=== PATIENT | female | born 1945 | race Caucasian/White ===

== ENCOUNTER 2016-06-14 12:59 | Outpatient (CLI) | payer MEDICARE | END 2016-06-14 13:00 | disposition home or self-care (01) | DX: Z12.31 Encounter for screening mammogram for malignant neoplasm of breast (principal); Z80.3 Family history of malignant neoplasm of breast ==

== ENCOUNTER 2017-03-04 22:51 | Outpatient (CLI) | payer MEDICARE | END 2017-03-04 22:52 | disposition critical access hospital (66) | LOC: EMS 22:51 | PROVIDERS: ATTEND Surgery | DX: R07.9 Chest pain, unspecified (principal) | CPT/HCPCS: A0425; A0427 ==

== ENCOUNTER 2017-03-04 23:21 | Emergency (ER) | payer MEDICARE ==
--- NOTE | 2017-03-05 00:15 | ED Physician Documentation ---
PD HPI CHEST PAIN - Stated complaint Stated Complaint: CP - Chief complaint Chief Complaint: Cardiac - History obtained from History obtained from: Patient - History of Present Illness Timing - onset: Enter time (21:30), Today Timing - onset during: Rest Timing - details: Abrupt onset Pain level now: 3 Quality: Pain Location: Substernal Radiation: Jaw, Left upper extremity Improved by: Nothing Worsened by: No: Exertion, Inspiration, Eating, Movement, Palpation, Position Associated symptoms: No: Shortness of air, Diaphoresis, Nausea, Vomiting, Feeling faint / dizzy, General Weakness, Palpitations, Cough Similar symptoms before: Has not had sx before Recently seen: Not recently seen Review of Systems Constitutional: reports: Reviewed and negative Cardiac: reports: Chest pain / pressure. 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 HEENT: Tonsil/Adenoidectomy Derm: Other - Present Medications Home Medications: Ambulatory Orders Medication Instructions Recorded Confirmed Pramipexole Di-HCl [Mirapex] 0.25 mg PO QPM 11/16/13 03/04/17 Clonazepam 1 tab PO PRN PRN 03/04/17 03/04/17 Nabumetone 1 tab PO PRN PRN 03/04/17 03/04/17 - Allergies Allergies/Adverse Reactions: Allergies Allergy/AdvReac Type Severity Reaction Status Date / Time No Known Drug Allergies Allergy Verified 03/04/17 23:29 - Social History Does the pt smoke?: No Smoking Status: Never smoker Does the pt drink ETOH?: Yes ETOH Use: Wine Does the pt have substance abuse?: No Results - Vitals Vitals: Oxygen O2 Source Room air - EKG (time done) No standard instances Rate: Rate (enter#) (62) Rhythm: NSR [place]: Normal Intervals: Normal AR QRS: Normal Ischemia: Normal ST segments - Labs Labs: Laboratory Tests 03/05/17 03/05/17 03/05/17 00:35 00:35 00:35 WBC 5.6 RBC 4.18 L Hgb 12.6 Hct 37.7 MCV 90.1 MCH 30.2 MCHC 33.5 RDW 13.9 Plt Count 243 MPV 8.3 Neut # 3.3 Lymph # 1.9 [place] # 0.3 Eos # 0.1 Baso # 0.1 Absolute Nucleated RBC 0.00 Nucleated RBC % 0.0 Sodium 138 Potassium 3.9 Chloride 102 Carbon Dioxide 26 Anion Gap 10.0 BUN 30 H Creatinine 1.0 Estimated GFR (MDRD) 54 L Glucose 90 Calcium 9.6 Total Bilirubin 0.3 AST 21 ALT 21 Alkaline Phosphatase 61 Troponin I < 0.04 Total Protein 6.7 Albumin 4.2 Globulin 2.5 Albumin/Globulin Ratio 1.7 Lipase 36 - Rads (name of study) chest xray Radiology: Prelim report reviewed, See rad report PD MEDICAL DECISION MAKING - ED course Complexity details: reviewed results, re-evaluated patient, considered differential, d/w patient Departure - Departure Disposition: 01 Home, Self Care Clinical Impression: Chest pain Condition: Good Instructions: ED Chest Pain Atypical Unkn Cause Follow-Up: Jennifer Guillermo PA [Primary Care Provider] - Discharge Date/Time: 03/05/17 03:09
[2017-03-05] MEDS ORDERED: MAG HYDROX/AL HYDROX/SIMETH 30 ML UDC PO STA (00:31)
[2017-03-05] MEDS ORDERED: LIDOCAINE VISCOUS 2% 15 ML UDC MM STA (00:31)
[2017-03-05] MEDS ORDERED: PHENobarb/HYOSCY/ATROPINE/SCOP 5 ML SYRINGE PO STA (00:32)
[2017-03-05] MEDS ORDERED: PHENobarb/HYOSCY/ATROPINE/SCOP 5 ML SYRINGE PO ONE (00:41)
[2017-03-05] MEDS ORDERED: LIDOCAINE VISCOUS 2% 15 ML UDC MM ONE (00:42)
[2017-03-05] MEDS ORDERED: MAG HYDROX/AL HYDROX/SIMETH 30 ML UDC ONE (00:42)
[2017-03-05 00:44] LABS: BASOPHILS # (AUTO) 0.1 10^3/uL (0.0-0.1); EOSINOPHILS # (AUTO) 0.1 10^3/uL (0.0-0.7); EOSINOPHILS % (AUTO) 1.1 %; HCT - HEMATOCRIT 37.7 % (37.0-47.0); HGB - HEMOGLOBIN 12.6 g/dL (12.0-16.0); LYMPHOCYTES # (AUTO) 1.9 10^3/uL (1.5-3.5); LYMPHOCYTES % (AUTO) 33.5 %; MEAN CORPUSCULAR HEMOGLOBIN 30.2 pg (27.0-31.0); MEAN CORPUSCULAR HGB CONC 33.5 g/dL (32.0-36.0); MEAN CORPUSCULAR VOLUME 90.1 fL (81.0-99.0); MEAN PLATELET VOLUME 8.3 fL (7.9-10.8); MONOCYTES # (AUTO) 0.3 10^3/uL (0.0-1.0); MONOCYTES % (AUTO) 5.8 %; NEUTROPHILS # (AUTO) 3.3 10^3/uL (1.5-6.6); NEUTROPHILS % (AUTO) 58.6 %; RED BLOOD COUNT 4.18 10^6/uL (4.20-5.40); RED CELL DISTRIBUTION WIDTH 13.9 % (12.0-15.0); UNCORRECTED WHITE BLOOD COUNT 5.6 x10^3/uL; WHITE BLOOD COUNT 5.6 x10^3/uL (4.8-10.8)
[2017-03-05 00:55] LABS: ALBUMIN/GLOBULIN RATIO 1.7 (1.0-2.2); BILIRUBIN,TOTAL 0.3 mg/dL (0.2-1.0); CALCIUM 9.6 mg/dL (8.5-10.3); POTASSIUM 3.9 mmol/L (3.5-5.0); TOTAL PROTEIN 6.7 g/dL (6.7-8.2)
--- NOTE | 2017-03-05 01:03 | XRAY Preliminary Report ---
Exam: XR CHEST 2 VIEW PA/LAT IMPRESSION: Left basilar atelectatic changes, otherwise no acute cardio pulmonary process. [facility] SITE ID: [id number]
--- NOTE | 2017-03-05 01:06 | XRAY Report ---
EXAM: CHEST RADIOGRAPHY EXAM DATE: 03/05/2017 12:50 AM. CLINICAL HISTORY: Left sided chest pain COMPARISON: 01/11/2006. TECHNIQUE: 2 views. FINDINGS: Lungs/Pleura: Hypoventilatory opacities at the left lung base. No pulmonary edema or confluent lobar consolidation. No pleural effusion or pneumothorax. Mediastinum: Heart and mediastinal contours are unremarkable. Other: Moderate right convexity midthoracic scoliosis, increased since the previous exam. IMPRESSION: Left basilar atelectatic changes, otherwise no acute cardio pulmonary process. [facility] Referring Provider Line: [phone] SITE ID: [id number]
[2017-03-05] MEDS ORDERED: PANTOPRAZOLE 40 MG TABLET PO STA (02:02)
[2017-03-05] MEDS ORDERED: PANTOPRAZOLE 40 MG TABLET ONE (02:12)
[2017-03-05 03:09] VITALS: BP 158/91
== END 2017-03-05 03:09 | disposition home or self-care (01) ==
LOC: EDUNIT# → SUPCPDRO 23:21 → ED 23:21
DX: R07.9 Chest pain, unspecified (principal); E78.00 Pure hypercholesterolemia, unspecified
CPT/HCPCS: 36415; 71020; 80053; 83690; 84484; 85025; 93005; 99284; A9270

== ENCOUNTER 2018-04-14 15:20 | Outpatient (CLI) | payer MEDICARE ==
--- NOTE | 2018-04-16 09:38 | XRAY Report ---
Reason: PAIN IN LEFT FOOT Procedure Date: 04/14/2018 Accession Number: [id number] / [id number] Procedure: XR - Foot 3 View LT CPT Code: FULL RESULT: EXAM: LEFT FOOT RADIOGRAPHY EXAM DATE: 04/14/2018 03:35 PM. CLINICAL HISTORY: PAIN IN LEFT FOOT. Pain between the second and third digits on left foot for 2 years, feels like electric shock. COMPARISON: None. TECHNIQUE: 3 nonweightbearing views. FINDINGS: Bones: Normal. No fractures or bone lesions. Joints: No subluxation or dislocation. There is mild hallux valgus alignment at the first metatarsophalangeal joint. Soft Tissues: Normal. No soft tissue swelling. IMPRESSION: 1. Mild hallux valgus alignment at the first metatarsophalangeal joint. 2. No acute osseous abnormality. [facility]
== END 2018-04-14 15:21 | disposition home or self-care (01) ==
LOC: DI 15:20
PROVIDERS: ATTEND Physician Assistant
DX: M20.12 Hallux valgus (acquired), left foot (principal)

== ENCOUNTER 2020-06-24 13:20 | Outpatient (CLI) | payer MEDICARE ==
--- NOTE | 2020-06-24 16:33 | DEXA Report ---
PROCEDURE: Dexa Spine and/or Hip INDICATIONS: POSTMENOPAUSAL TECHNIQUE: Dual energy x-ray absorptiometry (DXA) was performed on a NanoCellect System. Regions measur ed are the AP Spine, femoral neck, and if needed forearm. COMPARISON: None. FINDINGS: Lumbar Spine: Unable to use for assessment. Left Femoral Neck: Bone Mineral Density 0.815 g/cm/cm, T score -1.5, osteopenia Left forearm: The forearm was utilized for measurements of bone mineral density given excessive densi ties seen on lumbar spine imaging. Bone Mineral Density 0.473 g/cm/cm, T score -3.2, osteoporosis (T score greater or equal to -1.0: NORMAL) (T score from -1.1 to -2.4: OSTEOPENIA) (T score less than or equal to -2.5 to: OSTEOPOROSIS) Impression: OSTEOPOROSIS. Patient is at high risk for fracture. Patients with diagnosis of osteoporosis or osteopenia should have regular bone mineral density assess ment. For those eligible for Medicare, routine testing is allowed once every 2 years. Testing frequ ency can be increased for patients who have rapidly progressing disease or for those who are receivin g medical therapy to restore bone mass. Reviewed by: Binh Cooper MD on 06/24/2020 4:32 PM PDT Approved by: Binh Cooper MD on 06/24/2020 4:32 PM PDT Station ID: [id number]
== END 2020-06-24 13:21 | disposition home or self-care (01) ==
LOC: DI 13:20
PROVIDERS: ATTEND Nurse Practitioner Family
DX: M81.0 Age-related osteoporosis without current pathological fracture (principal); Z78.0 Asymptomatic menopausal state

== ENCOUNTER 2020-06-24 13:22 | Outpatient (CLI) | payer MEDICARE ==
--- NOTE | 2020-06-25 15:09 | Mammography Report ---
BILATERAL DIGITAL SCREENING MAMMOGRAM 3D/2D: 06/24/2020 CLINICAL: Routine screening. Comparison is made to exams dated: 06/14/2016 mammogram, 05/26/2015 mammogram, and 04/18/2014 mammogram - [facility]. There are scattered fibroglandular elements in both breasts. No significant masses, calcifications, or other findings are seen in either breast. There has been no significant interval change. IMPRESSION: NEGATIVE There is no mammographic evidence of malignancy. A 1 year screening mammogram is recommended. This exam was interpreted at Station ID: [id number]. NOTE: For mammograms, a report in lay terms will be sent to the patient. Approximately 15% of breast malignancies will not be visualized mammographically. In the management of a palpable breast mass, a negative mammogram must not discourage biopsy of a clinically suspicious lesion. Electronically Signed By: Antwon Reyes M.D. ar/libbyrad:06/24/2020 16:40:26 ACR BI-RADS Category 1: Negative 3341F PARENCHYMAL PATTERN: (A) - The breast(s) demonstrate(s) scattered fibroglandular densities. BI-RADS CATEGORY: (1) - 1 RECOMMENDATION: (ANNUAL) - Recommend routine annual screening mammography. [id number] 1 year screening LATERALITY: (B)
== END 2020-06-24 13:23 | disposition home or self-care (01) ==
LOC: DI 13:22
PROVIDERS: ATTEND Nurse Practitioner Family
DX: Z12.31 Encounter for screening mammogram for malignant neoplasm of breast (principal)

== ENCOUNTER 2020-07-22 22:43 | Emergency (ER) | payer MEDICARE ==
--- NOTE | 2020-07-23 00:02 | ED Physician Documentation ---
PD HPI ABD PAIN - Stated complaint Stated Complaint: ABD PX - Chief complaint Chief Complaint: Abd Pain - History obtained from History obtained from: Patient - History of Present Illness Timing - onset: Today Timing - details: Gradual onset, Waxing and waning Pain level now: 8 Quality: Pain Location: RUQ, Epigastric, Other (across upper abdomen, worst in RUQ and epigastrium) Radiation: Lower back Improved by: Other (nothing) Worsened by: Eating, Palpation Associated symptoms: Nausea, Vomiting. No: Fever, Diarrhea, Constipation Recently seen: Other (had colonoscopy yesterday) - Additional information Additional information: patient had colonoscopy yesterday without acutely concerning findings (diverticulosis, polyps noted; they were unable to complete the colonoscopy due to tortuous colon). Patient says she was doing well until earlier this afternoon when she developed gradual onset upper abdominal pain shortly after she had solid food for first time since the procedure. The pain has steadily worsened and became associated with nausea and vomiting this evening. She contacted the GI group ([facility]), and the customer service correspondence clerk patch machine operator recommended she come to ED for evaluation Review of Systems Constitutional: denies: Fever, Chills, Sweats Eyes: reports: Reviewed and negative Ears: reports: Reviewed and negative Nose: reports: Reviewed and negative Throat: reports: Reviewed and negative Cardiac: reports: Reviewed and negative Respiratory: reports: Reviewed and negative GI: reports: Abdominal Pain, Nausea, Vomiting. 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, 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 HEENT: Tonsil/Adenoidectomy Derm: Other - Present Medications Home Medications: Ambulatory Orders Medication Instructions Recorded Confirmed Pramipexole Di-HCl [Mirapex] 0.25 mg PO QPM 11/16/13 03/04/17 Clonazepam 1 tab PO PRN PRN 03/04/17 03/04/17 Nabumetone 1 tab PO PRN PRN 03/04/17 03/04/17 - Allergies Allergies/Adverse Reactions: Allergies Allergy/AdvReac Type Severity Reaction Status Date / Time No Known Drug Allergies Allergy Verified 07/22/20 22:54 - Social History Does the pt smoke?: No Smoking Status: Never smoker Does the pt drink ETOH?: Yes Does the pt have substance abuse?: No PD ED PE NORMAL - Vitals Vital signs reviewed: Yes - General General: Alert and oriented X 3, Well developed/nourished, Other (obvious painful distress) - HEENT HEENT: Other (tacky/pasty mucous membranes) - Neck Neck: Supple, no meningeal sign - Cardiac Cardiac: RRR, No murmur - Respiratory Respiratory: No respiratory distress, Clear bilaterally - Abdomen Abdomen: Soft, Non distended, Other (TTP across upper abdomen, most pronounced RUQ) - Back Back: No CVA TTP - Derm Derm: Normal color, Warm and dry - Extremities Extremities: No edema - Neuro Neuro: Alert and oriented X 3 Results - Vitals Vitals: Vital Signs - 24 hr 07/22/20 07/22/20 07/23/20 22:50 22:52 01:16 Temperature 36.8 C 37.1 C Heart Rate 83 86 99 Respiratory 20 17 12 Rate Blood Pressure 146/78 H 141/86 H 144/83 H O2 Saturation 96 97 86 L 07/23/20 07/23/20 07/23/20 01:19 03:30 06:00 Temperature 36.4 C L Heart Rate 80 78 Respiratory 12 14 18 Rate Blood Pressure 106/58 L 113/60 O2 Saturation 92 93 92 Oxygen O2 Source Room air - Labs Labs: Laboratory Tests 07/22/20 07/22/20 07/23/20 23:50 23:50 04:10 WBC 10.0 RBC 4.62 Hgb 13.6 Hct 42.1 MCV 91.1 MCH 29.4 MCHC 32.3 RDW 14.1 Plt Count 196 MPV 11.0 H Neut # (Auto) 9.4 H Lymph # (Auto) 0.2 L [place] # (Auto) 0.2 Eos # (Auto) 0.1 Baso # (Auto) 0.0 Absolute Nucleated RBC 0.00 Nucleated RBC % 0.0 Sodium 139 Potassium 3.2 L Chloride 102 Carbon Dioxide 24 Anion Gap 13.0 BUN 19 Creatinine 1.1 H Estimated GFR (MDRD) 48 L Glucose 108 H Calcium 9.9 Total Bilirubin 4.7 H AST 89 H ALT 73 H Alkaline Phosphatase 108 Total Protein 7.5 Albumin 4.6 Globulin 2.9 Albumin/Globulin Ratio 1.6 Lipase 31 Nasal Adenovirus (PCR) NOT DETECTED Nasal B. parapertussis DNA (PCR) NOT DETECTED Nasal Coronavir 229E PCR NOT DETECTED Nasal Coronavir HKU1 PCR NOT DETECTED Nasal Coronavir NL63 PCR NOT DETECTED Nasal Coronavir OC43 PCR NOT DETECTED Nasal Enterovir/Rhinovir PCR NOT DETECTED Nasal Influenza B PCR NOT DETECTED Nasal Influenza A PCR NOT DETECTED Nasal Parainfluen 1 PCR NOT DETECTED Nasal Parainfluen 2 PCR NOT DETECTED Nasal Parainfluen 3 PCR NOT DETECTED Nasal Parainfluen 4 PCR NOT DETECTED Nasal RSV (PCR) NOT DETECTED Nasal B.pertussis DNA PCR NOT DETECTED Nasal C.pneumoniae (PCR) NOT DETECTED Raj Human Metapneumo PCR NOT DETECTED Nasal M.pneumoniae (PCR) NOT DETECTED Nasal SARS-CoV-2 (PCR) NOT DETECTED - Rads (name of study) CT A/P with IV contrast Radiology: Prelim report reviewed, See rad report PD MEDICAL DECISION MAKING - ED course Complexity details: reviewed results, re-evaluated patient, considered differential, d/w patient ED course: CT A/P shows multiple gallstones with distended gallbladder and intrahepatic ductal dilatation. She has mildly elevated AST and ALT but significantly elevated bilirubin. Given IV dilaudid with good symptom relief. I discussed the case with Dr. Monge (customer service correspondence clerk GI for [facility]); he recommends admission for MRCP and possible ERCP depending on results. He recommends admit to either hospitalist or surgical service. I discussed the case with Dr. Baltazar (customer service correspondence clerk surgery for [facility]); he recommends transfer to facility with ERCP capability. The [facility] transfer center was then contacted; they informed ED LEAD NUCLEAR MEDICINE TECHNOLOGIST that no beds are available at [facility]. I then discussed the case with transfer center for [facility]. Transfer center says there is no availability at [facility] or affiliated hospitals. I then discussed the case with surgery customer service correspondence clerk (Dr. Cowart) at [facility] in [place]. She agrees patient is appropriate for transfer to [place], recommends admit to hospitalist service. I then discussed the case with Dr. Hinojosa, hospitalist at [facility], accepts transfer. He recommends IV ceftriaxone and metronidazole and these are given in [facility] ED. Departure - Departure Disposition: 02 Transfer Acute Care Hosp Clinical Impression: Cholecystitis Condition: Stable Discharge Date/Time: 07/23/20 07:23
[2020-07-23] MEDS ORDERED: SODIUM CHLORIDE 0.9% 1,000 ML IV STA ×2 (00:03→00:17)
[2020-07-23] MEDS ORDERED: ONDANSETRON 4 MG/2 ML VIAL IVP STA (00:03)
[2020-07-23 00:11] LABS: BASOPHILS % (AUTO) 0.3 %; EOSINOPHILS # (AUTO) 0.1 10^3/uL (0.0-0.7); EOSINOPHILS % (AUTO) 1.4 %; HCT - HEMATOCRIT 42.1 % (37.0-47.0); HGB - HEMOGLOBIN 13.6 g/dL (12.0-16.0); LYMPHOCYTES # (AUTO) 0.2 10^3/uL (1.5-3.5); LYMPHOCYTES % (AUTO) 2.3 %; MEAN CORPUSCULAR HEMOGLOBIN 29.4 pg (27.0-31.0); MEAN CORPUSCULAR HGB CONC 32.3 g/dL (32.0-36.0); MEAN CORPUSCULAR VOLUME 91.1 fL (81.0-99.0); MONOCYTES # (AUTO) 0.2 10^3/uL (0.0-1.0); NEUTROPHILS # (AUTO) 9.4 10^3/uL (1.5-6.6); NEUTROPHILS % (AUTO) 93.8 %; PLT - PLATELET COUNT 196 10^3/uL (130-450); RED BLOOD COUNT 4.62 10^6/uL (4.20-5.40); RED CELL DISTRIBUTION WIDTH 14.1 % (12.0-15.0)
[2020-07-23] MEDS ORDERED: HYDROmorphone 1 MG/ML CARPUJECT IVP STA ×2 (00:13→07:02)
[2020-07-23] MEDS ORDERED: IOPAMIDOL-300 100 ML VIAL ONE (00:20)
[2020-07-23 00:44] LABS: ALBUMIN 4.6 g/dL (3.2-5.5); ALBUMIN/GLOBULIN RATIO 1.6 (1.0-2.2); BILIRUBIN,TOTAL 4.7 mg/dL (0.2-1.0); CALCIUM 9.9 mg/dL (8.5-10.3); CREATININE 1.1 mg/dL (0.4-1.0); POTASSIUM 3.2 mmol/L (3.5-5.0); TOTAL PROTEIN 7.5 g/dL (6.7-8.2)
[2020-07-23] MEDS ORDERED: IOPAMIDOL-300 100 ML VIAL IVP ONE (01:35)
[2020-07-23 05:35] LABS: B. PARAPERTUSSIS- RESP PCR PAN NOT DETECTED; B. PERTUSSIS- RESP PCR PANEL NOT DETECTED; C. PNEUMONIAE- RESP PCR PANEL NOT DETECTED; CORONAVIRUS 229E-RESP PCR NOT DETECTED; CORONAVIRUS HKU1-RESP PCR NOT DETECTED; CORONAVIRUS NL63-RESP PCR NOT DETECTED; CORONAVIRUS OC43-RESP PCR NOT DETECTED; HUMAN METAPNEUMOVIRUS NOT DETECTED; INFLUENZA A- RESP PCR PANEL NOT DETECTED; INFLUENZA B - RESP PCR PANEL NOT DETECTED; M. PNEUMONIAE- RESP PCR PANEL NOT DETECTED; PARAINFLUENZA VIRUS 1 NOT DETECTED; PARAINFLUENZA VIRUS 2 NOT DETECTED; PARAINFLUENZA VIRUS 3 NOT DETECTED; PARAINFLUENZA VIRUS 4 NOT DETECTED; RHINOVIRUS/ENTEROVIRUS NOT DETECTED; RSV- RESP PCR PANEL NOT DETECTED; SARS-CoV-2 -RESP PCR PANEL NOT DETECTED
[2020-07-23] MEDS ORDERED: cefTRIAXone 1 GM in SODIUM CHLORIDE 0.9% MINIBAG 100 ML IV STA (05:41)
[2020-07-23] MEDS ORDERED: metroNIDAZOLE 500 MG/100 ML 500 MG/100 ML BAG IV STA (05:41)
[2020-07-23] MEDS ORDERED: cefTRIAXone 1 GM VIAL ONE (05:56)
[2020-07-23 06:36] VITALS: BP 113/60
--- NOTE | 2020-07-23 08:27 | CT Report ---
PROCEDURE: Abdomen/Pelvis W INDICATIONS: abdominal pain CONTRAST: IV CONTRAST: Isovue 300 ml: 100 PO CONTRAST: *NO PO CONTRAST TECHNIQUE: After the administration of intravenous contrast, 5 mm thick sections acquired from the diaphragms to the symphysis. 5 mm thick coronal and sagittal reformats were acquired. For radiation dose reducti on, the following was used: automated exposure control, adjustment of mA and/or kV according to greta ent size. COMPARISON: None. FINDINGS: Image quality: Excellent. ABDOMEN: Lung bases: Lung bases are clear. Heart size is normal. Solid organs: Liver and spleen are normal in size and enhancement. The gallbladder is distended with a thickened wall and edema within the wall of the gallbladder. There are multiple stones in the gall bladder neck region. There is intrahepatic biliary ductal dilatation. The extrahepatic duct measures 1.1 cm at the level of the common hepatic duct. There is no distal common duct stone identified. Stoddard nikki, cannot exclude a distal common duct stone. Pancreas enhances normally. No adrenal nodules. Kid neys demonstrate normal size and enhancement, without hydronephrosis. Peritoneum and bowel: Remote gastric bypass. Mild to moderate hiatal hernia containing stomach. Akbar l loops demonstrate normal wall thickness and caliber. No free fluid or air. Nodes and vessels: No retroperitoneal or mesenteric adenopathy by size criteria. Aorta and inferior vena cava are normal in size. Miscellaneous: There are at least 3 small midline ventral hernias containing fat. PELVIS: Genitourinary: Bladder wall thickness is normal. Miscellaneous: No inguinal hernias or adenopathy. Uterus is surgically absent. Bones: No suspicious bony lesions. No vertebral body compression fractures. Levoscoliosis centered at L2. This is moderate. IMPRESSION: 1. Distended gallbladder with gallstones and gallbladder wall thickening and gallbladder wall edema. Findings are highly suspicious for acute cholecystitis. Consider a lateral ultrasound for confirmatio n. 2. Dilated biliary tree. Cannot exclude a distal common duct stone. Consider MRCP. 3. Incidental note made of multiple small fat-containing anterior abdominal wall hernias. 4. Hiatal hernia. A preliminary report with the above findings was provided at the time of the study by [employer]. Reviewed by: Alexey Stallings MD on 07/23/2020 8:26 AM PDT Approved by: Alexey Stallings MD on 07/23/2020 8:26 AM PDT Station ID: [id number]
== END 2020-07-23 07:23 | disposition short-term general hospital (02) ==
LOC: ED 22:43
DX: K80.10 Calculus of gallbladder with chronic cholecystitis without obstruction (principal); K63.5 Polyp of colon; K57.30 Diverticulosis of large intestine without perforation or abscess without bleeding; K44.9 Diaphragmatic hernia without obstruction or gangrene; K43.9 Ventral hernia without obstruction or gangrene; Z20.822 Contact with and (suspected) exposure to COVID-19
CPT/HCPCS: 36415; 74177; 80053; 83690; 85025; 87631; 96365; 96368; 96375; 96376; 99284; 99285; J1170; Q9967; 0202U

== ENCOUNTER 2020-07-23 07:19 | Outpatient (CLI) | payer MEDICARE | END 2020-07-23 07:20 | disposition short-term general hospital (02) | LOC: EMS 07:19 | PROVIDERS: ATTEND Emergency Medicine | DX: K81.9 Cholecystitis, unspecified (principal); R94.5 Abnormal results of liver function studies | CPT/HCPCS: A0425; A0426 ==

== ENCOUNTER 2020-09-22 12:46 | Outpatient (CLI) | payer MEDICARE ==
[2020-09-22 15:02] LABS: ALBUMIN 4.5 g/dL (3.2-5.5); ALBUMIN/GLOBULIN RATIO 1.7 (1.0-2.2); BILIRUBIN,TOTAL 0.7 mg/dL (0.2-1.0); CALCIUM 10.3 mg/dL (8.5-10.3); POTASSIUM 4.3 mmol/L (3.5-5.0); TOTAL PROTEIN 7.2 g/dL (6.7-8.2)
--- NOTE | 2020-09-22 17:09 | Nuclear Medicine Report ---
PROCEDURE: Parathyroid Scan w/SPECT INDICATIONS: HYPERPARATHYROIDISM TECHNIQUE: After intravenous administration of Tc-99m sestamibi, anterior planar images of the neck a nd mediastinum were obtained at approximately 10 minutes and 2-3 hours. SPECT images were acquired a fter the 10 minute planar images. COMPARISON: None. FINDINGS: On the early images, the thyroid gland is bilobed and has normal size and morphology. Ther e is focal increased activity in the inferior right thyroid bed. The delayed images show subtle pref erential tracer retention in the inferior right thyroid bed in the parathyroid adenoma. The SPECT im ages demonstrate increased activity in the right thyroid bed. IMPRESSION: Suspected parathyroid adenoma in the inferior right thyroid bed. Recommend ultrasound or CT with and without contrast using parathyroid protocol for further evaluation. Reviewed by: Anabella Frazier MD on 09/22/2020 5:08 PM PDT Approved by: Anabella Frazier MD on 09/22/2020 5:08 PM PDT Station ID: [id number]
== END 2020-09-22 12:47 | disposition home or self-care (01) ==
LOC: DI 12:46
PROVIDERS: ATTEND Nurse Practitioner Family
DX: R93.89 Abnormal findings on diagnostic imaging of other specified body structures (principal)
CPT/HCPCS: 36415; 78071; 80053

== ENCOUNTER 2020-10-18 16:50 | Outpatient (CLI) | payer MEDICARE | END 2020-10-18 16:51 | disposition home or self-care (01) | LOC: LAB 16:50 | DX: M81.8 Other osteoporosis without current pathological fracture (principal) | CPT/HCPCS: 36415; 82306; 82310 ==

== ENCOUNTER 2020-10-27 08:00 | Outpatient (CLI) | payer MEDICARE | END 2020-10-27 23:59 | disposition home or self-care (01) | LOC: LAB.R 08:00 | PROVIDERS: ATTEND Otolaryngology | DX: M81.8 Other osteoporosis without current pathological fracture (principal) | CPT/HCPCS: 82340 ==

== ENCOUNTER 2020-10-30 13:30 | Outpatient (CLI) | payer MEDICARE | END 2020-10-30 13:31 | disposition home or self-care (01) | LOC: LAB.S 13:30 | PROVIDERS: ATTEND Nurse Practitioner Family | DX: M81.8 Other osteoporosis without current pathological fracture (principal) | CPT/HCPCS: 36415; 83970 ==

== ENCOUNTER 2020-11-25 14:24 | Outpatient (CLI) | payer MEDICARE ==
[2020-11-25 15:08] VITALS: BP 134/77
--- NOTE | 2020-11-25 15:08 | SLEEP CARE CONSULTATION ---
Information from patient questionnaire entered by Stephanie Cat. I have reviewed and concur with the information entered by Stephanie Cat. This document represents the service I personally performed and the decisions made by , Veronica Gonzalez ARNP. History of Present Illness Service Date and Time: 11/25/2020 1424 Reason for Visit: New patient, Previously diagnosed sleep apnea (mild - AHI - 11.2 in 2013 and severe - AHI - 55.0 in 2007), sleep apnea on CPAP therapy, Re-[facility] (last seen 08/2013) Chief Complaint: reports: Insomnia, Unrefreshed sleep, Snoring, Excessive daytime sleepiness, Fatigue, Frequent awakenings at night Date of Onset: years Usual bedtime: 2-4 am Time it takes to fall asleep: sometimes hours Snores at night: Yes Observed to quit breathing while asleep: No Number of times waking at night: 2-4 Reasons for waking at night: reports: Snoring (not common), Bathroom. denies: Choking, Gasping for air Toss, Turn, or Twitch while sleeping: Yes Recalls having dreams: No Usually gets out of bed at: 11 am - 12 pm Feels refreshed in the morning: No Morning headache: Yes (sometimes, resolves after 30 minutes) Sleepy or fatigued during the day: Yes Ever fallen asleep while driving: No Takes day naps: Yes (2-3 times a week for about 30 mins -1.5 hours) Dreams during day naps: Yes Prior sleep studies: Yes Year and Where: 2013 and 2007 - [facility] Type of Sleep Study: Polysomnography Additional HPI information: [address] was previously diagnosed to have mild, AHI 11.2, obstructive sleep apnea-hypopnea syndrome in 2013 (previously severe obstructive at 55.0 in 2007) and returns today to -[facility]. She states she had a gallbladder removal surgery last month and they told her she had oxygen de-saturations. She also has some morning headaches that can resolve with deep breaths. She states she is a night person and has trouble sleeping. She is a light sleeper. 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 Patient is and lives in [place]. Have you smoked in the past 12 months: No Cigarettes per day (20/pack): 20 Years of smokin Quit date: 1971 Smoking Pack Years: 10.0 Alcohol use: Yes Alcohol amount and frequency: 1-2 glasses, seldom Caffeine use: No Family History Family history of sleep disordered breathing: Yes Family Hx Sleep Apnea: Father: Snoring Allergies and Home Medications Drug allergies reviewed: Yes (NKDA) Home medication list reviewed: Yes Allergy and home medication list: Nexium Mirapex Nabumatom, prn (pain reliever) Review of Systems Gastrointestinal: reports: heartburn Ear/Nose/Throat: reports: nasal congestion Endocrine: reports: thyroid disease (not sure), too hot or cold Musculoskeletal: reports: back pain Immunologic: reports: sneezing Physical Exam Blood Pressure: 134/77 Cuff size: wrist Heart Rate: 58 O2 Saturation: 98 Height: 5 ft 2 in Weight: 172 lb Body Mass Index: 31.4 BMI Classification: Obese Impression and Plan 1. Suspected Obstructive Sleep Apnea-Hypopnea Syndrome, as previously diagnosed in 2007, 2013 and as suggested by a history of snoring, morning headaches, frequent awakening during the night, unrefreshed sleep, cognitive impairment, and excessive daytime sleepiness. Patient would like to repeat a sleep study to see if she needs a CPAP. She has been on a CPAP previously but has not been on one for many years. She states she returned her device because it was malfunctioning and then never got one back to continue treatment. Recent headaches and desaturations noted with her gallbladder surgery have brought her back for retesting. I recommend proceeding to polysomnography to confirm the diagnosis and to assess severity. If the patient has significant sleep disordered breathing, a manual CPAP titration study will also be performed to find the optimal treatment pressure. Patient agreed to plan. * Schedule polysomnography +- manual CPAP titration study and return in 1-2 weeks after the study to discuss result and initiate therapy. * Avoid long distance driving or driving when feeling sleepy. * Avoid alcohol, sedative and muscle relaxant around bedtime. * Attempt to lose weight. * Review instructions provided by trained office staff on how to prepare for the sleep study. * Return for follow-up after sleep study completed. Counseling Topics: Weight loss health impact Visit Type: In Office Time Spent with Patient (minutes): 25 Provider Statement: I spent 100% of the Face to Face Visit with the patient with greater than 50% spent counseling the patient and coordination of care.
== END 2020-11-25 14:25 | disposition home or self-care (01) ==
LOC: SC 14:24
PROVIDERS: ATTEND Nurse Practitioner Family
DX: G47.33 Obstructive sleep apnea (adult) (pediatric) (principal); E66.9 Obesity, unspecified; Z68.31 Body mass index [BMI] 31.0-31.9, adult
CPT/HCPCS: 99212; G0463

== ENCOUNTER 2020-12-01 16:01 | Outpatient (CLI) | payer MEDICARE ==
[2020-12-01 19:55] LABS: CALCIUM 10.2 mg/dL (8.5-10.3)
[2020-12-01 20:15] LABS: THYROID STIMULATING HORMONE 0.53 uIU/mL (0.34-5.60)
== END 2020-12-01 16:02 | disposition home or self-care (01) ==
LOC: LAB.S 16:01
PROVIDERS: ATTEND Internal Medicine
DX: E21.3 Hyperparathyroidism, unspecified (principal)
CPT/HCPCS: 36415; 82306; 82310; 82565; 83970; 84443

== ENCOUNTER 2020-12-29 12:58 | Outpatient (CLI) | payer MEDICARE | END 2020-12-29 12:59 | disposition home or self-care (01) | LOC: SC 12:58 | PROVIDERS: ATTEND Nurse Practitioner Family | DX: G47.33 Obstructive sleep apnea (adult) (pediatric) (principal); R09.02 Hypoxemia | CPT/HCPCS: G0399 ×2; 95806 ==

== ENCOUNTER 2021-01-14 14:21 | Outpatient (CLI) | payer MEDICARE ==
--- NOTE | 2021-01-14 14:58 | SLEEP CARE CONSULTATION ---
Information from patient questionnaire entered by Britany March. I have reviewed and concur with the information entered by Britany March. This document represents the service I personally performed and the decisions made by , Veronica Gonzalez ARNP. History of Present Illness Service Date and Time: 01/14/2021 1421 Initial [place] Sleepiness Scale score: 13 (in 2007) Current [place] Sleepiness Scale score: 7 Additional HPI information: [address] returns for follow up and results of the recently performed home sleep study. I explained the pathophysiology behind obstructive sleep apnea. We then spent quite a bit of time discussing different treatment options. For mild obstructive sleep apnea, surgery and oral appliance are alternatives to nasal CPAP therapy but in moderate or severe cases, nasal CPAP is the most effective and reliable treatment. Because apnea is primarily in supine position, then positional management therapy could be effective. Methods discussed such as positioning with pillows to prevent supine sleep. I reviewed the impact of weight changes on sleep apnea and strongly recommended losing weight. AAS patient education PAP tips and Non Pap treatment pamphlets reviewed and given to patient. Patient counseled not drink alcohol less than 4 hours before bedtime as it can increase snoring and apnea. Patient was cautioned about risks of drowsy driving until sleepiness symptoms resolve. Sleep Study - Results Type of Sleep Study: Home sleep study Prior sleep studies: Yes Year and Where: 2020(HST)/2013(PSG)/2007 (PSG) - [facility] Sleep Polysomnography/Home Sleep Study results: Physician Impression: The quality of the study is good. The length of the study is adequate (> 240 minutes). Please also see the tabulated and graphic data. 1. Obstructive Sleep Apnea-Hypopnea (ICD-10 G47.33), mild, with an AHI of 13.3 /hr and angela SaO2 of 74%. During the study, the patient had 56 apneas (56 obstructive, 0 central, 0 mixed) and 56 hypopneas. The longest episode lasted 143.0 seconds. The respiratory events occurred more frequently during supine sleep (supine AHI was 21.7 and non-supine, 5.85). 2. Hypoxemia (ICD-10 R09.02), moderate, with the lowest oxygen saturation of 74 % and 151.2 minutes with SaO2 under 90%. Baseline oxygen saturation was normal (Average oxygen saturation was 91%). Allergies and Home Medications Home medication list reviewed: Yes (no changes) Review of Systems Review of systems same as previous: Yes (no changes) Physical Exam Heart Rate: 59 O2 Saturation: 95 Height: 5 ft 2 in Weight: 172 lb Body Mass Index: 31.4 BMI Classification: Obese Impression and Plan 1. Obstructive Sleep Apnea-Hypopnea Syndrome, mild, with lowest oxygen saturation of 74%. Obviously this is the cause of the patients symptoms of unrefreshed sleep, and excessive daytime sleepiness. Patient would like to see if she can get her insurance to cover an oral appliance. She will call us back if she decides to change to a CPAP machine. As mentioned above, the patient chose an oral appliance to treat their apnea. A 3 month follow up will be made to see if appliance has reduced symptoms. If so, another polysomnography will be ordered with use of the oral appliance to check efficacy in reducing apnea. Until patient is able to use the oral appliance, positional therapy is advised to avoid supine sleep with pillow positioning or one of the commercial products because apnea is more severe supine. 2. Hypoxemia, moderate, with the lowest oxygen saturation of 74 % and 151.2 minutes with SaO2 under 90%. Her baseline oxygen saturation was normal with an average oxygen saturation of 91%. * Oral appliance. * Attempt to lose weight. * Avoid alcohol consumption near bedtime. * Avoid supine sleep until using oral appliance * The patient is again cautioned about driving until sleepiness completely resolves. * Return in about 3 months after obtaining oral appliance. I will assess response to therapy at that time. Counseling Topics: Sleeping position, Weight loss health impact Visit Type: In Office Time Spent with Patient (minutes): 29 Provider Statement: I spent 100% of the Face to Face Visit with the patient with greater than 50% spent counseling the patient and coordination of care.
== END 2021-01-14 14:22 | disposition home or self-care (01) ==
LOC: SC 14:21
PROVIDERS: ATTEND Nurse Practitioner Family
DX: G47.33 Obstructive sleep apnea (adult) (pediatric) (principal); E66.9 Obesity, unspecified; Z68.31 Body mass index [BMI] 31.0-31.9, adult
CPT/HCPCS: 99213; G0463; 99212

== ENCOUNTER 2021-02-21 11:29 | Outpatient (CLI) | payer MEDICARE ==
[2021-02-21 15:59] LABS: CALCIUM 10.2 mg/dL (8.5-10.3); CREATININE 0.9 mg/dL (0.4-1.0); CREATININE,URINE 80.5 mg/dL; PHOSPHORUS 3.4 mg/dL (2.5-4.6)
[2021-02-21 16:15] LABS: THYROID STIMULATING HORMONE 1.49 uIU/mL (0.34-5.60)
[2021-02-21 16:33] LABS: PATIENT WEIGHT,URINE 165 lbs; TOTAL VOLUME,URINE 1250 mL
== END 2021-02-21 11:30 | disposition home or self-care (01) ==
LOC: LAB.S 11:29
DX: E21.3 Hyperparathyroidism, unspecified (principal)
CPT/HCPCS: 36415; 82310; 82340; 82565; 82575; 83970; 84100; 84443

== ENCOUNTER 2021-07-08 13:09 | Outpatient (CLI) | payer MEDICARE ==
[2021-07-08 20:14] LABS: CALCIUM 9.9 mg/dL (8.5-10.3); CREATININE 1.1 mg/dL (0.4-1.0)
== END 2021-07-08 13:10 | disposition home or self-care (01) ==
LOC: LAB.S 13:09
PROVIDERS: ATTEND Internal Medicine
DX: M81.8 Other osteoporosis without current pathological fracture (principal); E21.3 Hyperparathyroidism, unspecified; K21.9 Gastro-esophageal reflux disease without esophagitis
CPT/HCPCS: 36415; 82306; 82310; 82565; 83970

== ENCOUNTER 2021-07-24 15:37 | Outpatient (CLI) | payer MEDICARE ==
[2021-07-24 20:17] LABS: % IRON SATURATION 20 % (20-50); IRON 59 ug/dL (28-170); TOTAL IRON BINDING CAPACITY 293 ug/dL (250-450); TRANSFERRIN 209 mg/dL (192-382)
== END 2021-07-24 15:38 | disposition home or self-care (01) ==
LOC: LAB.S 15:37
PROVIDERS: ATTEND Nurse Practitioner Family
DX: R79.0 Abnormal level of blood mineral (principal)
CPT/HCPCS: 36415; 82728; 83540; 84466